=== PATIENT | female | born 1945 ===

== ENCOUNTER 2018-07-27 08:39 | Day surgery (SDC) | payer MEDICARE ==
[2016-10-05 10:41] VITALS: BMI 30.9
[2018-07-27] MEDS ORDERED: Lactated Ringer's 500 ML IV ONE (10:03)
[2018-07-27] MEDS ORDERED: Propofol 10 mg/ml Inj (20 ML) ONE (10:33)
[2018-07-27 11:08] VITALS: O2SAT 99
[2018-07-27 11:23] VITALS: BP 145/79; PULSE 80; RESP 19; TEMP 97.2
== END 2018-07-27 12:34 | disposition home or self-care (01) ==
LOC: H.ENDO 08:39
PROVIDERS: ATTEND Internal Medicine Gastroenterology
DX: D50.9 Iron deficiency anemia, unspecified (principal); E11.9 Type 2 diabetes mellitus without complications; E78.5 Hyperlipidemia, unspecified; K64.8 Other hemorrhoids
CPT/HCPCS: 45378; 82948; J2001; J2704; J7120